=== PATIENT | male | born 1970 | race Caucasian/White ===

== ENCOUNTER 2017-07-31 12:08 | Emergency (ER) | payer OTHER ==
[2017-07-31] MEDS: DIPHTH/TET/ACEL PERTUSS (ADULT) 0.5 ML VIAL IM* (12:45)
[2017-07-31] MEDS: IBUPROFEN 800 MG TAB PO (12:46)
[2017-07-31] MEDS: LIDOCAINE 1% (MDV) 10 ML INJ INJ (12:54)
== END 2017-07-31 14:44 | disposition home or self-care (01) ==
LOC: FTE 12:08
DX: S61.412A Laceration without foreign body of left hand, initial encounter (principal); W27.2XXA Contact with scissors, initial encounter; Y92.9 Unspecified place or not applicable; Z23 Encounter for immunization
CPT/HCPCS: 12001; 73130-LT; 90471; 90715; 99283-25

== ENCOUNTER 2017-08-02 13:54 | Emergency (ER) | payer OTHER | END 2017-08-02 14:13 | disposition home or self-care (01) | LOC: E/R 14:13 | DX: Z48.01 Encounter for change or removal of surgical wound dressing (principal) | CPT/HCPCS: 99281 ==

== ENCOUNTER 2017-08-07 07:43 | Emergency (ER) | payer OTHER | END 2017-08-07 09:04 | disposition home or self-care (01) | LOC: FTE 07:43 | DX: R20.2 Paresthesia of skin (principal); F17.210 Nicotine dependence, cigarettes, uncomplicated | CPT/HCPCS: 99281; Z7502 ==